=== PATIENT | female | born 1945 | race Caucasian/White ===

== ENCOUNTER 2020-03-09 16:14 | Emergency (ER) | payer MEDICARE, OTHER ==
[2020-03-09 16:20] VITALS: RESP 18; TEMP 98.5
[2020-03-09] MEDS ORDERED: FLUORESCEIN STRIPS 1 MG STRIP LEFT EYE ONE (16:27)
[2020-03-09] MEDS ORDERED: PROPARACAINE 0.5% OPHTH DROPS 15 ML BTL LEFT EYE STA (16:28)
--- NOTE | 2020-03-09 16:28 | ED ---
Eye Problem HPI <Fabián Nails - Last Filed: 03/09/20 17:48> - General Source: patient Mode of arrival: ambulatory Limitations: no limitations <Rodrick Milton - Last Filed: 03/09/20 18:50> - General Chief complaint: Eye Problems Stated complaint: eye problems Time Seen by Provider: 03/09/20 16:26 - History of Present Illness Initial comments: Patient is 74-year-old female presenting to emergency Department with chief complaint of a rash. Patient reports this started about 4 days ago with slight discomfort near her left eye. Patient reports she had a small headache where the rash was originating. Patient denies any visual changes. Patient reports the rash began today she so she scratched her multiple times. Patient reports she noticed her left eye is getting red and puffy so she decided to come to the ED for further evaluation. Patient does not wear contact lenses. Patient states she had chickenpox as a child. Patient reports the eye is quite itchy. (Rodrick Milton) - Related Data Previous Rx's Medication Instructions Recorded valACYclovir HCL [Valtrex] 1,000 mg PO Q8HR #21 tab 03/09/20 Allergies Allergy/AdvReac Type Severity Reaction Status Date / Time adhesive tape AdvReac Rash/Hives Verified 03/09/20 16:21 Review of Systems ROS Other: All systems not noted in ROS Statement are negative. <Fabián Nails - Last Filed: 03/09/20 17:48> ROS Other: All systems not noted in ROS Statement are negative. <Rodrick Milton - Last Filed: 03/09/20 18:50> ROS Statement: Those systems with pertinent positive or pertinent negative responses have been documented in the HPI. Past Medical History Past Medical History: No Reported History History of Any Multi-Drug Resistant Organisms: None Reported Past Surgical History: Coronary Bypass/CABG, Hysterectomy Additional Past Surgical History / Comment(s): Valve replacement Past Psychological History: No Psychological Hx Reported Smoking Status: Never smoker Past Alcohol Use History: None Reported Past Drug Use History: None Reported <Rodrick Milton - Last Filed: 03/09/20 18:50> General Exam Limitations: no limitations General appearance: alert, in no apparent distress Head exam: Present: atraumatic, normocephalic, normal inspection Eye exam: Present: normal appearance, PERRL, EOMI, conjunctival injection. Absent: other (No dendrites detected with fluorescein stain.) Pupils: Present: normal accommodation ENT exam: Present: normal exam Neck exam: Present: normal inspection, full ROM Respiratory exam: Present: normal lung sounds bilaterally Cardiovascular Exam: Present: regular rate, normal rhythm, normal heart sounds Extremities exam: Present: normal inspection, full ROM Back exam: Present: normal inspection, full ROM Neurological exam: Present: alert, oriented X3 Psychiatric exam: Present: normal affect, normal mood Skin exam: Present: warm, dry, intact, normal color <Rodrick Milton - Last Filed: 03/09/20 18:50> Course <Fabián Nails - Last Filed: 03/09/20 17:48> Vital Signs 03/09/20 03/09/20 16:16 17:45 Temperature 98.5 F Pulse Rate 85 83 Respiratory 18 18 Rate Blood Pressure 152/82 175/65 O2 Sat by Pulse 99 99 Oximetry - Reevaluation(s) Reevaluation #1: 03/09/20 17:48 PA supervision: I proceeded [id number] evaluation the patient she did present with complaints of left-sided facial pain and headache went from was a week she started developing a rash several days ago. She has no blurry vision she does have some lesion to the left side of her face some mild conjunctival injection. On examination no evidence of any dendritic formation arrived. Case will be discussed with ophthalmology. Close ophthalmology follow-up we performed (Fabián Nails) Medical Decision Making <Rodrick Milton - Last Filed: 03/09/20 18:50> - Medical Decision Making Patient is a 74-year-old female presenting to emergency Department with a chief complaint of a rash. On exam patient does appear to have a herpes zoster Polycast. She states the pain is managed. The report of some mild headache particularly over the side of the rash. Patient was given 200 mg of ibuprofen with improvement of symptoms. Fluorescein stain reveals no signs of dendrites. I spoke with who states that he will see her tomorrow. Patient started on Valtrex and discharged with a seven-day course of Valtrex. Return parameters thoroughly discussed with patient was understanding and agreeable. Case discussed with physician. (Rodrick Milton) Disposition <Fabián Nails - Last Filed: 03/09/20 17:48> Is patient prescribed a controlled substance at d/c from ED?: No Time of Disposition: 17:21 <Rodrick Milton - Last Filed: 03/09/20 18:50> Clinical Impression: Ophthalmic herpes zoster Disposition: HOME SELF-CARE Condition: Stable Instructions (If sedation given, give patient instructions): Shingles (ED), Shingles Vaccine (ED) Additional Instructions: Follow-up with ophthalmology. Return to emergency department if symptoms worsen. Take prescribed medication as directed. Prescriptions: valACYclovir HCL [Valtrex] 1,000 mg PO Q8HR #21 tab Referrals: None,Stated [Primary Care Provider] - 1-2 days Denise Noble MD [STAFF PHYSICIAN] - 1-2 days
[2020-03-09] MEDS ORDERED: IBUPROFEN 400 MG TAB PO STA (17:41)
[2020-03-09 17:51] VITALS: BP 175/65; PULSE 83
[2020-03-09] MEDS ORDERED: valACYclovir 500 MG TAB PO STA (18:10)
== END 2020-03-09 18:33 | disposition home or self-care (01) ==
LOC: EC 16:14
DX: B02.30 Zoster ocular disease, unspecified (principal); Z95.1 Presence of aortocoronary bypass graft; Z95.2 Presence of prosthetic heart valve; Z91.048 Other nonmedicinal substance allergy status
CPT/HCPCS: 99282